=== PATIENT | male | born 1945 | race Caucasian/White ===

== ENCOUNTER 2017-07-28 08:34 | Day surgery (SDC) | payer OTHER ==
[~2017-07-28] VITALS: Ht 162.6 cm; Wt 77.6 kg
[~2017-07-28 08:34] MED LIST: CHOL100034 PO; DOXY50CA2 PO; FLUT16H NASAL; GABA-326 PO; LORA10CA9 PO; LOSA1TAB42 PO; METO25TA6 PO; SIMV10TA6 PO; SODIUM CHLORIDE 0.9% 1000ML 1,000 ML IV ONE; UBID30CA11 PO
[2017-07-28 08:57] VITALS: BP 182/87
[2017-07-28] MEDS ORDERED: PROPOFOL 10 MG/ML 20ML VIAL IV ONE ×2 (09:27→09:28)
[2017-07-28 09:53] VITALS: BP 93/57
== END 2017-07-28 10:25 ==
LOC: ENDO 08:34 → DAH 08:34 → ENDO 10:25
PROVIDERS: ATTEND Internal Medicine Gastroenterology
DX: Z09 Encounter for follow-up examination after completed treatment for conditions other than malignant neoplasm (principal); Z86.010 Personal history of colon polyps; Z68.34 Body mass index [BMI] 34.0-34.9, adult; I10 Essential (primary) hypertension; E78.5 Hyperlipidemia, unspecified; Z98.890 Other specified postprocedural states; Z79.899 Other long term (current) drug therapy; Q28.2 Arteriovenous malformation of cerebral vessels; K57.30 Diverticulosis of large intestine without perforation or abscess without bleeding
CPT/HCPCS: 93005; A4606; G0105; J2704 ×2; J7030